=== PATIENT | male | born 1970 | race African-American/Black ===

== ENCOUNTER 2018-07-18 10:38 | Day surgery (SDC) | payer OTHER ==
[2018-07-11 14:08] VITALS: BMI 50.9
[2018-07-18] MEDS ORDERED: PROPOFOL 20 ML ONE ×2 (12:16)
[2018-07-18 13:39] VITALS: TEMP 98.7
[2018-07-18 14:48] VITALS: BP 128/83; PULSE 84
== END 2018-07-18 14:10 | disposition home or self-care (01) ==
LOC: FASU-ENDO 10:38
PROVIDERS: ATTEND Internal Medicine Gastroenterology
PROC: 0DJD8ZZ Inspection of Lower Intestinal Tract, Via Natural or Artificial Opening Endoscopic (ICD-10-PCS; principal; 2018-07-18 13:07)
DX: Z86.010 Personal history of colon polyps (principal)

== ENCOUNTER 2023-06-21 08:56 | Day surgery (SDC) | payer OTHER ==
[2023-06-15 11:53] VITALS: BMI 50.2
[2023-06-21 10:52] VITALS: PULSE 91; RESP 16; TEMP 97.1
[2023-06-21 11:28] VITALS: BP 130/80
== END 2023-06-21 11:30 | disposition home or self-care (01) ==
LOC: FASU-ENDO 08:56
PROVIDERS: ATTEND Internal Medicine Gastroenterology
PROC: 0DJD8ZZ Inspection of Lower Intestinal Tract, Via Natural or Artificial Opening Endoscopic (ICD-10-PCS; principal; 2023-06-21 10:36)
DX: Z12.11 Encounter for screening for malignant neoplasm of colon (principal); K57.30 Diverticulosis of large intestine without perforation or abscess without bleeding; Z86.010 Personal history of colon polyps